=== PATIENT | female | born 1995 | race Caucasian/White ===

== ENCOUNTER → 2018-05-22 | Outpatient (CLI) | payer BC, OTHER ==
[2018-05-24 15:06] LABS: CHLAMYDIA TRACHOMATIS, NAA Negative (Negative); NEISSERIA GONORRHOEAE, NAA Negative (Negative)
== END ==
LOC: LAB 05:00 → LAB SHORT 05:00
PROVIDERS: Family Medicine
DX: N72 Inflammatory disease of cervix uteri (principal)
CPT/HCPCS: 87491; 87591

== ENCOUNTER → 2018-08-29 | Outpatient (CLI) | payer BC, OTHER ==
[2018-08-31 05:09] LABS: HIV SCREEN 4TH GENERATION WRFX Non Reactive (Non Reactive)
[2018-08-31 06:08] LABS: HBSAG SCREEN Negative (Negative); HEP C VIRUS AB <0.1 (0.0-0.9)
[2018-08-31 21:06] LABS: CHLAMYDIA TRACHOMATIS, NAA Negative (Negative); NEISSERIA GONORRHOEAE, NAA Negative (Negative)
[2018-09-02 08:09] LABS: HEP A AB, IGM Negative; HEP B CORE AB, IGM Negative
== END | disposition home or self-care (01) ==
LOC: LAB SHORT 14:20 → LAB 14:20
PROVIDERS: Physician Assistant
DX: N72 Inflammatory disease of cervix uteri (principal)
CPT/HCPCS: 80074; 86592; 87389; 87491; 87591

== ENCOUNTER → 2019-03-17 | Outpatient (CLI) | payer BC, OTHER | LOC: LAB UCHC 15:22 → LAB SHORT 15:22 | PROVIDERS: Registered Nurse Community Health | DX: Z12.4 Encounter for screening for malignant neoplasm of cervix (principal) | CPT/HCPCS: G0123 ==

== ENCOUNTER → 2024-12-12 | Outpatient (CLI) | payer OTHER ==
[2024-12-12 14:53] LABS: Chlamydia Trachomatis Vaginal NOT DETECTED (NOT DETECT); Neisseria Gonorrhoea Vaginal NOT DETECTED (NOT DETECT)
== END ==
LOC: LAB SHORT 11:46 → LAB 11:46
PROVIDERS: Nurse Practitioner
DX: Z20.2 Contact with and (suspected) exposure to infections with a predominantly sexual mode of transmission (principal); R35.0 Frequency of micturition
CPT/HCPCS: 87086; 87491; 87591